=== PATIENT | male | born 1995 | race Caucasian/White ===

== ENCOUNTER 2016-11-29 13:17 | Emergency (ER) | payer OTHER ==
[~2016-11-29] VITALS: Ht 172.7 cm; Wt 73.0 kg
[~2016-11-29 13:17] MED LIST: CEPH500C3 PO; LORTA5 PO
[2016-11-29 13:25] VITALS: BP 184/118; PULSE 74; RESP 18; TEMP 97.6; O2SAT 99
[2016-11-29] MEDS ORDERED: SODIUM CHLOR 0.9% 1000 ML INJ 1,000 ML IV SCH (13:28)
[2016-11-29] MEDS ORDERED: ceFAZolin 2 GM PREMIX 50 ML IV ONE (13:30)
[2016-11-29] MEDS ORDERED: SODIUM CHLORIDE 0.9% FLUSH 10 ML FLUSH IVF PRN (13:30)
[2016-11-29] MEDS ORDERED: ONDANSETRON HCL 4 MG/2 ML VIAL IVP ONE (13:30)
[2016-11-29] MEDS ORDERED: MORPHINE SULFATE 4 MG/ML INJ IV ONE (13:30)
[2016-11-29 13:33] VITALS: O2SAT 99
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
[2016-11-29] MEDS ORDERED: LIDOCAINE 2%/EPINEPHrine 1:100,000 30ML MDV INFIL ONE (14:00)
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
[2016-11-29] MEDS ORDERED: IBUP-1129 PO (14:45)
[2016-11-29 15:32] VITALS: BP 150/88
--- NOTE | 2016-11-29 15:36 | PD ---
Physical Exam Time Seen by Provider: 14:50 Narrative I was asked by the physician to repair laceration on this patient. Please see her note for further details. Data Data Last Documented VS Vital Signs Date Time Temp Pulse Resp B/P Pulse Ox O2 Delivery O2 Flow Rate FiO2 11/29/16 15:32 89 18 150/88 99 11/29/16 13:33 Room Air 11/29/16 13:25 97.6 Orders Chest, Single Ap (11/29/16 13:28) Spine, Cervical - Ltd (Ap&Lat) (11/29/16 13:28) Pelvis, Ap Only (Routine) (11/29/16 13:28) Iv Access Insert/Monitor (11/29/16:) Ecg Monitoring (11/29/16:) Oximetry (11/29/16:) Oxygen Administration (11/29/16:) Cefazolin 2 Gm Premix (Ancef 2 Gm Premix (11/29/16 13:30) Morphine Inj (Morphine Inj) (11/29/16 13:30) Ondansetron Inj (Zofran Inj) (11/29/16 13:30) Sodium Chlor 0.9% 1000 Ml Inj (Ns 1000 M (11/29/16 13:28) Sodium Chloride 0.9% Flush (Ns Flush) (11/29/16 13:30) Elbow, Complete (4 Vws) (11/29/16 13:28) Femur (Ap & Lat/2vws) (11/29/16 13:28) Knee, Ltd (1 Or 2vws) (11/29/16 13:28) Tibia/Fibula (Ap/Lat) (11/29/16 13:28) Lidocai-Epi 2%-1:100,000 Inj (Xylocaine- (11/29/16 14:00) MDM Medical Record Reviewed: Yes Supervised Visit with ANTONELLA: Yes Procedures Procedure Narrative LACERATION LOCATION: Left elbow LENGTH: 4 cm NUMBER OF STITCHES/MARV: 4 simple interrupted REPAIR: The area of the laceration was prepped with Betadine and sterilely draped. The laceration was infiltrated with 2% lidocaine with epinephrine. The wound was copiously irrigated and explored without evidence of foreign body , tendon injury or neurovascular injury. The wound was closed using 4-0 Prolene. This was a single layer repair. A sterile dressing was applied. The patient was advised to keep the dressing clean and dry. Patient tolerated the procedure well. Diagnosis Primary Impression: Laceration of left elbow Additional Impression: Abrasion of left leg Referrals: Family Practice Physician call for appointment Patient Instructions: General Instructions, Narcotic given in the ED, Care For Your Stitches (ED), Laceration (ED) Departure Forms: Tests/Procedures Scripts Ibuprofen (Motrin Ib)200 Mg [id number] Mg PO QID PRN (PAIN SCALE 1 TO 10) #20 Prov:Júnior Landa MD 11/29/16 Disposition: 01 DISCHARGE HOME Condition: Stable Lakeisha Mulligan Nov 29, 2016 15:35
== END 2016-11-29 15:33 | disposition home or self-care (01) ==
LOC: PHED 13:17
DX: S51.012A Laceration without foreign body of left elbow, initial encounter (principal); S80.812A Abrasion, left lower leg, initial encounter; F17.210 Nicotine dependence, cigarettes, uncomplicated; V28.0XXA Motorcycle driver injured in noncollision transport accident in nontraffic accident, initial encounter; Y99.8 Other external cause status
CPT/HCPCS: 12002; 71010; 72040; 72170; 73080; 73552; 73560; 73590; 96365; 96375; 99284; J0690; J2270; J2405; J7030